=== PATIENT | female | born 1950 | race Caucasian/White ===

== ENCOUNTER 2023-03-10 10:46 | Inpatient (IN) | payer MEDICARE, OTHER ==
[~2023-03-10] VITALS: Ht 162.6 cm; Wt 88.5 kg
--- NOTE | 2023-03-10 10:50 | NUR ---
RECEIVED PT 72 YRS FEMALE FROM HOME BY NONA C/O DIZZNESS AND WEEKNESS WAS ON FLOOR UNTILL THIS MORNING
--- NOTE | 2023-03-10 11:15 | NUR ---
NOSOB OR DISCOFORT
[2023-03-10] MEDS ORDERED: IV NS 0.9% 1,000 ML BAG IV ONE (11:30)
--- NOTE | 2023-03-10 12:03 | NUR ---
INSTREDED TOMÁS Mata 20 ONLT WRIST BLOOD DROA AND SENT TO LAB BLOOD DR
[2023-03-10 12:12] LABS: BASOPHILS % (AUTO) 0.2 % (0.0-2.0); EOSINOPHILS % (AUTO) 0.2 % (0.0-6.0); HEMATOCRIT 36 % (33-45); LYMPHOCYTES # (AUTO) 0.9 K/uL (0.8-4.8); LYMPHOCYTES % (AUTO) 9.7 % (20.0-44.0); MEAN CORPUSCULAR HGB CONC 33 g/dl (31.0-36.0); MEAN CORPUSCULAR VOLUME 93 fL (82-100); MONOCYTES # (AUTO) 0.4 K/uL (0.1-1.30); MONOCYTES % (AUTO) 4.8 % (2.0-12.0); NEUTROPHILS # (AUTO) 7.9 K/uL (1.8-8.9); NEUTROPHILS % (AUTO) 85.1 % (43.0-81.0); PLATELET COUNT (AUTO) 220 K/uL (150-450); RED BLOOD CELL COUNT(AUTO) 3.91 MIL/uL (4.0-5.2); WHITE BLOOD COUNT (AUTO) 9.3 K/uL (4.3-11.0)
[2023-03-10 12:23] LABS: CALCIUM, SERUM 9.8 mg/dL (8.5-10.1); CARBON DIOXIDE 24 mmol/L (21-32); CHLORIDE 103 mmol/L (98-107); CREATININE 1.9 mg/dL (0.6-1.3); GLUCOSE 301 mg/dL (74-106); POTASSIUM 3.9 mmol/L (3.5-5.1); SODIUM SERUM 139 mmol/L (136-145); UREA NITROGEN, BLOOD 29 mg/dL (7-18)
[2023-03-10 12:27] LABS: CREATINE KINASE, TOTAL 365 U/L (26-192)
[2023-03-10 12:30] LABS: ALANINE AMINOTRANSFERASE 26 U/L (12-78); ALBUMIN 3.6 g/dL (3.4-5.0); ALKALINE PHOSPHATASE 85 U/L (46-116); ASPARTATE AMINOTRANSFERASE 20 U/L (15-37); BILIRUBIN,DIRECT 0.2 mg/dL (0.0-0.2); BILIRUBIN,TOTAL 0.6 mg/dL (0.2-1.0); TOTAL PROTEIN, SERUM 8.1 g/dL (6.4-8.2)
--- NOTE | 2023-03-10 13:17 | NUR ---
ua sent to lab
[2023-03-10 13:36] LABS: BILIRUBIN,URINE NEGATIVE (NEGATIVE); COLOR,URINE YELLOW (YELLOW); LEUKOCYTE ESTERASE ,URINE NEGATIVE (NEGATIVE); NITRITE, URINE NEGATIVE (NEGATIVE); PROTEIN,URINE 2+ mg/dl (NEGATIVE); UGLUCOSE 3+ mg/dL (NEGATIVE); UROBILINOGEN,URINE 0.2 EU/dL (0.2)
[2023-03-10 13:50] LABS: BACTERIA,URINE Rare /HPF (None Seen); SQUAMOUS EPITHELIAL CELL,UR Few /HPF (None Seen)
[2023-03-10] MEDS ORDERED: FURO-145 PO (14:14)
[2023-03-10] MEDS ORDERED: ATOR80TA PO (14:14)
[2023-03-10] MEDS ORDERED: METO25TA4 PO (14:14)
[2023-03-10] MEDS ORDERED: FAMO20TA8 PO (14:14)
[2023-03-10] MEDS ORDERED: GABA300C PO (14:14)
[2023-03-10] MEDS ORDERED: AMLO10TA4 PO (14:14)
[2023-03-10] MEDS ORDERED: BLOO-1280 IN (14:14)
[2023-03-10] MEDS ORDERED: OMEG1CAP PO (14:14)
[2023-03-10] MEDS ORDERED: INSU100I26 SQ (14:14)
[2023-03-10] MEDS ORDERED: BIOT10004 PO (14:14)
[2023-03-10] MEDS ORDERED: METHYL SALICYLATE TP (14:14)
[2023-03-10] MEDS ORDERED: BENA20TA9 PO (14:14)
[2023-03-10] MEDS ORDERED: ASPI-1169 PO (14:14)
[2023-03-10] MEDS ORDERED: Voltaren Gel TP (14:14)
[2023-03-10] MEDS ORDERED: CALC-864 PO (14:14)
[2023-03-10] MEDS ORDERED: INSU100V SQ (14:14)
--- NOTE | 2023-03-10 14:20 | NUR ---
[facility] CALLED DIRECTOR OF CARDIOPULMONARY SERVICES PAGED.
--- NOTE | 2023-03-10 14:59 | NUR ---
HAND OFF RED [place] TO ROOM 313-1
--- NOTE | 2023-03-10 15:00 | NUR ---
STABLE VS CLEAN PT DONDE KEEP COMFORTABLE
[2023-03-10 16:00] VITALS: BP 141/49; TEMP 98; O2SAT 95
--- NOTE | 2023-03-10 16:28 | NUR ---
FIXTURE BUILDER NOTE RECEIVED PT FROM ER VIA ALLEN. PATIENT A/O X4, ABLE TO MAKE NEEDS KNOWN. PT ORIENTED TO ROOM AND HOW TO USE THE CALL LIGHT. ON ROOM AIR, BREATHING EVENLY AND UNLABORED. NO SOB OR S/S OF DISTRESS NOTED. ALL BELONGINGS ACCOUNTED FOR, BELONGING SHEET SIGNED. WITH IV ACCESS LEFT WRIST #20G SL, PATENT AND INTACT, FLUSHES WELL. VS TAKEN FOLLOWS: BP 141/49, HR 67, RR 20, SPO2 95%, TEMP 98.0. SKIN ASSESSMENT DONE, PHOTOS TAKEN AND PUT IN THE CHART. LUNGS CLEAR BILATERALLY UPON AUSCULTATION. BOWEL SOUNDS PRESENT. SAFETY PRECAUTION IN PLACE: BED IN LOWEST LOCKED POSITION, SIDE RAILS UP X2, CALL LIGHT LIGHT WITHIN REACH. WILL CONTINUE TO MONITOR.
[2023-03-10] MEDS ORDERED: DEXTROSE 50%-WATER 50 ML DISP.SYRIN IV PRN (17:30)
[2023-03-10] MEDS ORDERED: INSULIN REGULAR, HUMAN 100 UNIT/ML 3 ML VIAL SQ PRN (17:30)
[2023-03-10] MEDS ORDERED: MECLIZINE HCL 25 MG TABLET PO ONE (17:30)
[2023-03-10] MEDS ORDERED: ONDANSETRON HCL/PF 4 MG/2 ML VIAL IVP PRN (18:00)
[2023-03-10] MEDS ORDERED: MAGNESIUM HYDROXIDE 30 ML UDC PO PRN (18:00)
[2023-03-10] MEDS ORDERED: Z GUARD REMEDY 4 OZ OINT TP PRN (18:00)
[2023-03-10] MEDS: BLOOD SUGAR DIAGNOSTIC 1 EACH STRIP IN SCH ×2 (18:08→22:43)
[2023-03-10] MEDS: INSULIN REGULAR, HUMAN 100 UNIT/ML 3 ML VIAL SQ PRN (18:21)
[2023-03-10] MEDS: IV LR 1000 ML 1,000 ML IV PRN (19:28)
--- NOTE | 2023-03-10 19:45 | NUR ---
RN CLOSING NOTE PATIENT AWAKE IN BED. PATIENT A/O X4, ABLE TO MAKE NEEDS KNOWN. PT ORIENTED TO ROOM AND HOW TO USE THE CALL LIGHT. ON ROOM AIR, BREATHING EVENLY AND UNLABORED. NO SOB OR S/S OF DISTRESS NOTED. ALL BELONGINGS ACCOUNTED FOR, BELONGING SHEET SIGNED. WITH IV ACCESS LEFT WRIST #20G SL, PATENT AND INTACT, FLUSHES WELL. ALL NEEDS ATTENDED. DUE MEDS GIVEN, KEPT PT COMFORTABLE IN BED. SAFETY PRECAUTION IN PLACE: BED IN LOWEST LOCKED POSITION, SIDE RAILS UP X2, CALL LIGHT LIGHT WITHIN REACH. WILL ENDORSE TO SALES ASSOCIATE.
--- NOTE | 2023-03-10 19:50 | NUR ---
INSTRUCTIONAL INTERVENTIONIST OPENING NOTE RECEIVED PATIENT AWAKE IN BED, A/O X4, ABLE TO MAKE NEEDS KNOWN. ON ROOM AIR, BREATHING EVENLY AND NONLABORED. ON EIGHT SECTION BLOWER WITH CURRENT READING SR 83 BPM. NO SOB OR S/S OF DISTRESS NOTED. WITH IV ACCESS LEFT WRIST #20G SL, PATENT AND INTACT, FLUSHES WELL. KEPT PT COMFORTABLE IN BED. SAFETY PRECAUTION IN PLACE: BED IN LOWEST LOCKED POSITION, SIDE RAILS UP X2, CALL LIGHT LIGHT WITHIN REACH. WILL CONTINUE TO MONITOR AND ASSIST.
[2023-03-10 20:00] VITALS: BP 143/69; TEMP 98.9; O2SAT 96
[2023-03-10] MEDS: GABAPENTIN 300 MG CAPSULE PO SCH (20:49)
[2023-03-10] MEDS: HEPARIN SODIUM, PORCINE 5000 UNITS/1 ML VIAL SQ SCH (20:50)
[2023-03-10] MEDS: *INSULIN REGULAR(HUMULIN R)HUM 100 UNIT/ML VIAL SQ PRN (22:36)
[2023-03-10] MEDS: INSULIN GLARGINE, 100 UNIT/ML CARTRIDGE SQ SCH (22:42)
[2023-03-10] MEDS: ACETAMINOPHEN 325 MG TABLET PO PRN (22:52)
[2023-03-11] VITALS (9 sets, daily range): BP systolic 108–134; BP diastolic 56–70; TEMP 97.5–99; O2SAT 94–97
[2023-03-11] MEDS ORDERED: MECLIZINE HCL 12.5 MG TABLET PO PRN
[2023-03-11] MEDS: GABAPENTIN 300 MG CAPSULE PO SCH ×3 (05:41→22:05)
--- NOTE | 2023-03-11 07:03 | NUR ---
SALES FACILITATOR CLOSING NOTES PATIENT AWAKE IN BED, A/O X4, ABLE TO MAKE NEEDS KNOWN. ON ROOM AIR, BREATHING EVENLY AND NONLABORED. ON SOLICITING FREIGHT AGENT WITH CURRENT READING SR 85 BPM. NO SOB OR S/S OF DISTRESS NOTED. WITH IV ACCESS LEFT WRIST #20G SL, PATENT AND INTACT, FLUSHES WELL. RUNNING D5LR @75CC/HR. KEPT PT COMFORTABLE IN BED. SAFETY PRECAUTION IN PLACE: BED IN LOWEST LOCKED POSITION, SIDE RAILS UP X2, CALL LIGHT LIGHT WITHIN REACH. WILL ENDORSE TO AM NURSE FOR SOLEDAD.
[2023-03-11 07:23] LABS: BASOPHILS % (AUTO) 0.4 % (0.0-2.0); HEMATOCRIT 33 % (33-45); HEMOGLOBIN 10.9 g/dL (11.5-14.8); LYMPHOCYTES % (AUTO) 40.5 % (20.0-44.0); MEAN CORPUSCULAR HGB CONC 34 g/dl (31.0-36.0); MEAN CORPUSCULAR VOLUME 93 fL (82-100); MONOCYTES # (AUTO) 0.4 K/uL (0.1-1.30); MONOCYTES % (AUTO) 5.5 % (2.0-12.0); NEUTROPHILS # (AUTO) 3.8 K/uL (1.8-8.9); NEUTROPHILS % (AUTO) 50.6 % (43.0-81.0); PLATELET COUNT (AUTO) 221 K/uL (150-450); RED BLOOD CELL COUNT(AUTO) 3.51 MIL/uL (4.0-5.2); WHITE BLOOD COUNT (AUTO) 7.5 K/uL (4.3-11.0)
[2023-03-11] MEDS: BLOOD SUGAR DIAGNOSTIC 1 EACH STRIP IN SCH ×4 (07:45→22:05)
[2023-03-11 07:46] LABS: CALCIUM, SERUM 9.1 mg/dL (8.5-10.1); CARBON DIOXIDE 24 mmol/L (21-32); CHLORIDE 105 mmol/L (98-107); CREATININE 1.5 mg/dL (0.6-1.3); GLUCOSE 150 mg/dL (74-106); MAGNESIUM 1.9 mg/dL (1.8-2.4); PHOSPHORUS 3.9 mg/dL (2.5-4.9); POTASSIUM 3.4 mmol/L (3.5-5.1); SODIUM SERUM 139 mmol/L (136-145); UREA NITROGEN, BLOOD 20 mg/dL (7-18)
[2023-03-11 08:02] LABS: CHOLESTEROL 126 mg/dL (<200); HDL CHOLESTEROL 35 mg/dL (40-60); LDL 66 mg/dL (0-99); TRIGLYCERIDES 138 mg/dL (30-150)
--- NOTE | 2023-03-11 08:02 | NUR ---
RN OPENING NOTE RECEIVED PATIENT IN BED AO x 3, ABLE TO RESPONDS ALL PHYSICAL STIMULI. RESPIRATORY EVEN AND UNLABORED IN ROOM AIR. IN NO ACUTE RESPIRATORY DISTRESS OBSERVED. SKIN IS WARM TO TOUCH, KEEP CLEAN/DRY. KEPT ELEVATED HOB FOR ASPIRATION PRECAUTION/ENSURE AIRWAY, ALSO LOWEST BED POSITIONED. BED ALARM IS ON AT ALL TIMES FOR SAFETY. CALL LIGHT WITHIN REACH, WILL CONTINUE TO MONITOR.
[2023-03-11] MEDS: METOPROLOL SUCCINATE 25 MG TAB.SR.24H PO SCH (09:00)
[2023-03-11] MEDS ORDERED: AMLODIPINE BESYLATE 10 MG TABLET PO SCH (09:00)
[2023-03-11] MEDS ORDERED: BENAZEPRIL HCL 20 MG TABLET PO SCH (09:00)
[2023-03-11] MEDS ORDERED: Medication Not On Formulary EA (Omega-3 Fatty Acids/Fish Oil (Fish Oil 1,000 Mg Capsule) PO SCH (09:00)
[2023-03-11] MEDS ORDERED: Medication Not On Formulary EA (Biotin 1,000 MCG) PO SCH (09:00)
[2023-03-11] MEDS: PANTOPRAZOLE 40 MG TABLET.DR PO SCH (09:21)
[2023-03-11] MEDS: ASPIRIN 81 MG TAB.CHEW PO SCH (09:21)
[2023-03-11] MEDS: ATORVASTATIN 40 MG TABLET PO SCH (09:21)
[2023-03-11] MEDS: HEPARIN SODIUM, PORCINE 5000 UNITS/1 ML VIAL SQ SCH ×2 (09:23→22:07)
[2023-03-11] MEDS ORDERED: POTASSIUM CHLORIDE 20 MEQ TAB.PRT.SR PO SCH (10:00)
[2023-03-11] MEDS: IV LR 1000 ML 1,000 ML IV PRN (12:13)
[2023-03-11] MEDS: *INSULIN REGULAR(HUMULIN R)HUM 100 UNIT/ML VIAL SQ PRN ×3 (12:14→22:08)
--- NOTE | 2023-03-11 18:05 | NUR ---
RN CLOSING NOTE PATIENT RESTING IN BED. IN NO ACUTE DISTRESS OBSERVED. RESPIRATORY EVEN AND UNLABORED IN ROOM AIR. THE PATIENT HAS NO FURTHER C/O N /V, BUT VERTIGO. SKIN IS WARM TO TOUCH KEEP CLEAN/DRY. KEPT ELEVATED HOB FOR ENSURE AIRWAY/ASPIRATION PRECAUTION, AND LOWEST BED POSITION. BED ALARM IS ON AT ALL THE TIME FOR SAFETY. CALL LIGHT WITHIN REACH, WILL ENDORSE MACHINE SILVER STRIPPER.
[2023-03-11] MEDS: INSULIN GLARGINE, 100 UNIT/ML CARTRIDGE SQ SCH (22:09)
--- NOTE | 2023-03-11 22:46 | NUR ---
MS/TELE/RN AT 19:30, PATIENT WAS IN BED AWAKE, ALERT, ORIENTED, APPEARED COMFORTABLE, NO SIGNS OF DISTRESS NOTED. PRESENTLY, PATIENT IS SLEEPING, NO CHANGE IN CONDITION, CALL LIGHT IN REACH, WILL CONTINUE TO MONITOR.
[2023-03-12] VITALS (7 sets, daily range): BP systolic 122–145; BP diastolic 49–86; TEMP 97.8–99.1; O2SAT 93–98
[2023-03-12] MEDS: GABAPENTIN 300 MG CAPSULE PO SCH ×3 (05:36→21:31)
--- NOTE | 2023-03-12 05:41 | NUR ---
MS/TELE/RN PATIENT IS AWAKE AT THIS TIME, NO C/O PAIN, NO SIGNS OF DISTRESS NOTED, CALL LIGHT IN REACH, ALL NEEDS ATTENDED AT THIS TIME, WILL CONTINUE TO MONITOR.
[2023-03-12] MEDS: INSULIN REGULAR, HUMAN 100 UNIT/ML 3 ML VIAL SQ PRN ×3 (06:23→17:25)
--- NOTE | 2023-03-12 07:45 | NUR ---
OPERATIONS BOARDMAN OPENING NOTE Patient in bed, awake. A/O x 4, able to make needs known. On room air, no SOB or s/s of distress noted. IV access on Left wrist #20 infusing LR at 75 ml/hr. Per patient, she still feels dizzy. On external monitoring showing SR, HR on the 70's. Safety precautions in place: bed in low, locked position; siderails up x 2; call light within reach. Will continue to monitor.
[2023-03-12] MEDS: BLOOD SUGAR DIAGNOSTIC 1 EACH STRIP IN SCH ×4 (07:54→22:19)
[2023-03-12 08:01] LABS: CALCIUM, SERUM 8.9 mg/dL (8.5-10.1); CARBON DIOXIDE 23 mmol/L (21-32); CHLORIDE 105 mmol/L (98-107); CREATININE 1.6 mg/dL (0.6-1.3); GLUCOSE 206 mg/dL (74-106); POTASSIUM 3.7 mmol/L (3.5-5.1); SODIUM SERUM 138 mmol/L (136-145); UREA NITROGEN, BLOOD 22 mg/dL (7-18)
--- NOTE | 2023-03-12 09:00 | NUR ---
RN NOTE Orthostatics done as follows: Supine- 145/72, HR 67 Sitting- 122/63, HR 69 Standing- 136/86, Hr 79
[2023-03-12] MEDS: ATORVASTATIN 40 MG TABLET PO SCH (09:24)
[2023-03-12] MEDS: ASPIRIN 81 MG TAB.CHEW PO SCH (09:24)
[2023-03-12] MEDS: PANTOPRAZOLE 40 MG TABLET.DR PO SCH (09:24)
[2023-03-12] MEDS: ACETAMINOPHEN 325 MG TABLET PO PRN ×2 (09:25→22:53)
[2023-03-12] MEDS: HEPARIN SODIUM, PORCINE 5000 UNITS/1 ML VIAL SQ SCH ×2 (09:27→21:34)
[2023-03-12] MEDS: METOPROLOL SUCCINATE 25 MG TAB.SR.24H PO SCH (09:33)
[2023-03-12] MEDS ORDERED: IV NS 0.9% 1,000 ML IV ONE (11:30)
[2023-03-12] MEDS: IV LR 1000 ML 1,000 ML IV PRN (14:35)
--- NOTE | 2023-03-12 18:45 | NUR ---
CONCRETE WALL GRINDER OPERATOR CLOSING NOTE Patient in bed, resting. A/O x 4, able to make needs known. Stable on room air, no SOB or s/s of distress noted. IV access on Right hand #20 infusing LR at 75 ml/hr. On external monitoring showing SR, HR on the 70's. Purewick placed, output of clear yellow urine 850 cc. All needs attended to. Due meds given. Safety precautions in place: bed in low, locked position; siderails up x 2; call light within reach. Will endorse to shift boss nurse for SOLEDAD.
--- NOTE | 2023-03-12 19:40 | NUR ---
silk screen cutter Opening Note Received patient in bed; awake, alert and oriented x 4. On room air; tolerating well. Breathing even and nonlabored. Not in any form of respiratory or cardiac distress. Denies any pain or discomfort. On telemetry monitoring with reading of sinus rhythm hr-71 bpm. With IV access on right hand 20g; patent and intact infusing with LR 1L running @ 75 ml/hr; flushes well. Able to make needs known. Safety precautions implemented: head of bed elevated, call light and table within reach, side rails up x 2, bed in lowest locked position. Will continue to monitor.
[2023-03-12] MEDS: INSULIN GLARGINE, 100 UNIT/ML CARTRIDGE SQ SCH (22:40)
[2023-03-12] MEDS: *INSULIN REGULAR(HUMULIN R)HUM 100 UNIT/ML VIAL SQ PRN (22:44)
[2023-03-13] VITALS: BP 151/78; TEMP 98.5; O2SAT 96
[2023-03-13] MEDS: IV LR 1000 ML 1,000 ML IV PRN (03:57)
--- NOTE | 2023-03-13 04:00 | NUR ---
RN Note Patient refused to have orthostatic vs taken. 0400 am bp supine position: bp 134/75 mm Hg, hr-60.
[2023-03-13 05:00] VITALS: BP 134/75; TEMP 98.4; O2SAT 98
[2023-03-13] MEDS: GABAPENTIN 300 MG CAPSULE PO SCH ×2 (06:21→12:46)
[2023-03-13] MEDS: BLOOD SUGAR DIAGNOSTIC 1 EACH STRIP IN SCH ×3 (06:21→17:07)
[2023-03-13] MEDS: INSULIN REGULAR, HUMAN 100 UNIT/ML 3 ML VIAL SQ PRN ×3 (06:48→17:12)
--- NOTE | 2023-03-13 07:10 | NUR ---
prison officer Closing Note Patient in bed; awake, a/o x 4. Stable on room air. In no acute distress. Denies any pain or discomfort. On telemetry monitoring with reading of sinus rhythm hr-61 bpm. With IV access on right hand 20g; patent and intact infusing with LR 1L running @ 75 ml/hr; flushes well. All needs met. All due meds given as ordered. Safety precautions maintained. Endorsed to MANUEL Lomas and MANUEL Abraham for continuity of care.
[2023-03-13 07:23] LABS: BASOPHILS % (AUTO) 0.6 % (0.0-2.0); EOSINOPHILS % (AUTO) 5.5 % (0.0-6.0); HEMATOCRIT 34 % (33-45); HEMOGLOBIN 11.7 g/dL (11.5-14.8); LYMPHOCYTES # (AUTO) 2.5 K/uL (0.8-4.8); LYMPHOCYTES % (AUTO) 39.7 % (20.0-44.0); MEAN CORPUSCULAR HGB CONC 34 g/dl (31.0-36.0); MEAN CORPUSCULAR VOLUME 92 fL (82-100); MONOCYTES # (AUTO) 0.5 K/uL (0.1-1.30); MONOCYTES % (AUTO) 7.9 % (2.0-12.0); NEUTROPHILS # (AUTO) 2.9 K/uL (1.8-8.9); NEUTROPHILS % (AUTO) 46.3 % (43.0-81.0); PLATELET COUNT (AUTO) 213 K/uL (150-450); RED BLOOD CELL COUNT(AUTO) 3.74 MIL/uL (4.0-5.2); WHITE BLOOD COUNT (AUTO) 6.4 K/uL (4.3-11.0)
[2023-03-13 07:30] VITALS: BP 139/58; TEMP 97.9; O2SAT 95
--- NOTE | 2023-03-13 07:30 | NUR ---
DICE TABLE PERSON OPENING NOTE Received patient awake in bed, A/O x 4, able to make needs known. On room air, no SOB or s/s of distress noted. IV access on Left hand G#20 infusing LR at 75 ml/hr. Patient denies dizziness at this time. On external monitoring showing Sinus bradycardia, HR 58 bpm. Safety precautions in place: bed in low, locked position; siderails up x 2; call light within reach. Will continue to monitor.
[2023-03-13 07:46] LABS: CALCIUM, SERUM 8.8 mg/dL (8.5-10.1); CARBON DIOXIDE 24 mmol/L (21-32); CHLORIDE 105 mmol/L (98-107); CREATININE 1.5 mg/dL (0.6-1.3); GLUCOSE 196 mg/dL (74-106); MAGNESIUM 1.8 mg/dL (1.8-2.4); PHOSPHORUS 3.7 mg/dL (2.5-4.9); POTASSIUM 3.7 mmol/L (3.5-5.1); SODIUM SERUM 139 mmol/L (136-145); UREA NITROGEN, BLOOD 19 mg/dL (7-18)
[2023-03-13] MEDS: PANTOPRAZOLE 40 MG TABLET.DR PO SCH (08:22)
[2023-03-13] MEDS: ATORVASTATIN 40 MG TABLET PO SCH (08:22)
[2023-03-13] MEDS: ASPIRIN 81 MG TAB.CHEW PO SCH (08:22)
[2023-03-13] MEDS: HEPARIN SODIUM, PORCINE 5000 UNITS/1 ML VIAL SQ SCH (08:23)
[2023-03-13] MEDS: METOPROLOL SUCCINATE 25 MG TAB.SR.24H PO SCH (08:25)
--- NOTE | 2023-03-13 15:09 | NUR ---
SW Consult. Pt resides alone at [address] [place] [address]. [address] [place], [place] [id number] . Pt. is alert and oriented X4 but requires assistance when she returns home. requested a [employer] referral. DC Plan : Pt will discharge home to [address] [place] [address]. [address] [place] [address] . Her sister will move in with her to provide assistance. Resources: [employer]
[2023-03-13 16:00] VITALS: BP 140/63; TEMP 97.8; O2SAT 95
--- NOTE | 2023-03-13 16:06 | NUR ---
RN NOTES PATIENT SEEN BY DESKTOP SUPPORT ENGINEER. [facility] [employer] ALERT GIVEN BY DEB.
[2023-03-13] MEDS: ACETAMINOPHEN 325 MG TABLET PO PRN (17:39)
--- NOTE | 2023-03-13 17:40 | NUR ---
RN NOTES PT C/O MILD HEADACHE AND REQUESTED FOR TYLENOL. PRN TYLENOL 650MG PO GIVEN AT 1737.
--- NOTE | 2023-03-13 19:10 | NUR ---
RN DISCHARGED NOTES PATIENT DISCHARGED HOME IN STABLE CONDITION. A/O X4. ABLE TO MAKE NEEDS KNOWN. PATIENT IS BREATHING EVENLY AND UNLABORED ON ROOM AIR, NO SIGNS OF DISTRESS NOTED. PATIENT BELONGINGS ACCOUNTED FOR, BELONGING SHEET SIGNED BY PATIENT. PHOTOS OF SKIN ISSUES TAKEN AND FILED ON HER CHART. PATIENT WERE GIVEN DISCHARGE INSTRUCTIONS VERBALLY AND IN WRITTEN FORM, VERBALIZED UNDERSTANDING. IV ACCESS ON RIGHT HAND G#20 REMOVED, DRY DRESSING APPLIED AT SITE, NO SIGNS OF BLEEDING NOTED. NAME ARM BAND REMOVED. PATIENT LEFT UNIT VIA WHEELCHAIR AT 1900 ACCOMPANIED BY PAT KOHLER. CALLED TAXI AND GAVE TAXI VOUCHER. PT VERBALIZED THAT HER SISTER NAMED JANUARY WILL BE WAITING FOR HER WHEN SHE ARRIVED AT HER APARTMENT. CHARGE NURSE AWARE OF D/C.
== END 2023-03-13 19:10 | disposition home health service (06) | DRG 683 ==
LOC: ER 10:48 → TELE 14:51
PROVIDERS: ADMIT Nurse Practitioner Family; ATTEND Nurse Practitioner Family
DX: N17.0 Acute kidney failure with tubular necrosis (principal); M62.82 Rhabdomyolysis; I10 Essential (primary) hypertension; H81.10 Benign paroxysmal vertigo, unspecified ear; E87.6 Hypokalemia; Z79.4 Long term (current) use of insulin; E11.9 Type 2 diabetes mellitus without complications; E78.5 Hyperlipidemia, unspecified; W19.XXXA Unspecified fall, initial encounter; Y93.9 Activity, unspecified; Y92.009 Unspecified place in unspecified non-institutional (private) residence as the place of occurrence of the external cause; Z87.891 Personal history of nicotine dependence; Z95.5 Presence of coronary angioplasty implant and graft
CPT/HCPCS: 36415; 70450-TC; 71045-TC; 76770-TC; 80048-TC; 80061-TC; 80076-TC; 81001; 82550-TC; 82553; 82962-TC; 83735-TC; 83880; 84100-TC; 84484-TC; 85025-TC; 93880-TC; 97112-TC; 97116-TC; 97530-TC; A4223; G0378; J1644; J1815; J3490; J7120; J8597

== ENCOUNTER 2024-02-25 18:20 | Inpatient (IN) | payer MEDICARE, OTHER ==
[~2024-02-25] VITALS: Ht 162.6 cm; Wt 72.6 kg
[2024-02-25 10:30] VITALS: BP 153/63; TEMP 99.3; O2SAT 94
[~2024-02-25 18:20] MED LIST: AMLO10TA4 PO; ASPI-1169 PO; ATOR80TA PO; BENA20TA9 PO; BIOT10004 PO; BLOO-1280 IN; CALC-864 PO; FAMO20TA8 PO; FURO-145 PO; GABA300C PO; INSU100I26 SQ; INSU100V SQ; METHYL SALICYLATE TP; METO25TA4 PO; OMEG1CAP PO; Voltaren Gel TP
[2024-02-25] MEDS: IV NS 0.9% 1,000 ML BAG IV ONE (18:45)
[2024-02-25 19:11] LABS: BASOPHILS % (AUTO) 0.3 % (0.0-2.0); EOSINOPHILS # (AUTO) 0.3 K/uL (0.0-0.7); EOSINOPHILS % (AUTO) 2.9 % (0.0-6.0); HEMATOCRIT 37 % (33-45); HEMOGLOBIN 12.6 g/dL (11.5-14.8); LYMPHOCYTES # (AUTO) 1.2 K/uL (0.8-4.8); LYMPHOCYTES % (AUTO) 13.1 % (20.0-44.0); MEAN CORPUSCULAR HEMOGLOBIN 32 PG (26.0-33.0); MEAN CORPUSCULAR HGB CONC 34 g/dl (31.0-36.0); MEAN CORPUSCULAR VOLUME 93 fL (82-100); MONOCYTES # (AUTO) 0.5 K/uL (0.1-1.30); NEUTROPHILS # (AUTO) 7.2 K/uL (1.8-8.9); NEUTROPHILS % (AUTO) 78.7 % (43.0-81.0); PLATELET COUNT (AUTO) 176 K/uL (150-450); RED BLOOD CELL COUNT(AUTO) 3.96 MIL/uL (4.0-5.2); RED CELL DISTRIBUTION WIDTH 12.9 % (11.5-15.0); WHITE BLOOD COUNT (AUTO) 9.2 K/uL (4.3-11.0)
[2024-02-25 19:18] LABS: SERUM AMMONIA 1 umol/L (11-32)
[2024-02-25 19:20] LABS: CALCIUM, SERUM 8.5 mg/dL (8.5-10.1); CARBON DIOXIDE 25 mmol/L (21-32); CHLORIDE 101 mmol/L (98-107); CREATININE 1.9 mg/dL (0.6-1.3); GLUCOSE 151 mg/dL (74-106); POTASSIUM 3.5 mmol/L (3.5-5.1); SODIUM SERUM 138 mmol/L (136-145); UREA NITROGEN, BLOOD 31 mg/dL (7-18)
[2024-02-25] MEDS ORDERED: CARV3.122 PO (19:24)
[2024-02-25] MEDS ORDERED: BENA40TA8 PO (19:24)
[2024-02-25] MEDS ORDERED: ACET-2030 PO (19:24)
[2024-02-25] MEDS ORDERED: MECL-167 PO (19:24)
[2024-02-25 19:27] LABS: ALANINE AMINOTRANSFERASE 25 U/L (12-78); ALBUMIN 2.8 g/dL (3.4-5.0); ALCOHOL, BLOOD < 3 mg/dL (0-10); ALKALINE PHOSPHATASE 96 U/L (46-116); ASPARTATE AMINOTRANSFERASE 54 U/L (15-37); BILIRUBIN,DIRECT 0.5 mg/dL (0.0-0.2); BILIRUBIN,TOTAL 1.5 mg/dL (0.2-1.0); TOTAL PROTEIN, SERUM 7.6 g/dL (6.4-8.2)
[2024-02-25 19:29] LABS: ACETAMINOPHEN 0 ug/ml (10-30); SALICYLATE < 0.2 mg/dL (2.8-20.0)
[2024-02-25 19:33] LABS: LACTIC ACID 2.6 mmol/L (0.4-2.0)
[2024-02-25 19:49] LABS: INR 1.05 (0.91-1.10); PARTIAL THROMBOPLASTIN TIME 30.2 SEC (24.3-34.3); PROTHROMBIN TIME 11.1 SECS (9.2-11.1)
[2024-02-25 19:56] LABS: APPEARANCE,URINE SLIGHTLY CLOUDY (CLEAR); BILIRUBIN,URINE 1+ (NEGATIVE); BLOOD, URINE 3+ Ery/uL (NEGATIVE); COLOR,URINE YELLOW (YELLOW); KETONES,URINE TRACE mg/dL (NEGATIVE); LEUKOCYTE ESTERASE ,URINE NEGATIVE (NEGATIVE); NITRITE, URINE NEGATIVE (NEGATIVE); PROTEIN,URINE 3+ mg/dl (NEGATIVE); UGLUCOSE NEGATIVE (NEGATIVE)
[2024-02-25 20:01] LABS: RBC,URINE 51-80 /HPF (0-2)
[2024-02-25 20:02] LABS: ADD URINE CULTURE YES; BACTERIA,URINE 4+ /HPF (None Seen); SQUAMOUS EPITHELIAL CELL,UR 0-2 /HPF (None Seen)
[2024-02-25 20:39] LABS: AMPHETAMINE, URINE NEGATIVE (NEGATIVE); BARBITURATE, URINE NEGATIVE (NEGATIVE); BENZODIAZEPINE, URINE NEGATIVE (NEGATIVE); CANNABINOID, URINE NEGATIVE (NEGATIVE); COCCAINE, URINE NEGATIVE (NEGATIVE); OPIATE, URINE NEGATIVE (NEGATIVE); PHENCYCLIDINE SCREEN,URINE NEGATIVE (NEGATIVE)
[2024-02-25] MEDS ORDERED: CEFTRIAXONE 1GM BAG (ER ONLY) 50 ML IV ONE (21:40)
[2024-02-25] MEDS: CEFTRIAXONE 1GM BAG (ER ONLY) 1 GM/50 ML PIGGYBACK IV ONE (21:42)
[2024-02-25] MEDS ORDERED: MAG HYDROX/AL HYDROX/SIMETH 30 ML UDC PO PRN (22:00)
[2024-02-25] MEDS ORDERED: ZOLPIDEM TARTRATE 5 MG TABLET PO PRN (22:00)
[2024-02-25] MEDS ORDERED: MECLIZINE HCL 25 MG TABLET PO PRN (22:00)
[2024-02-25] MEDS ORDERED: ONDANSETRON HCL/PF 4 MG/2 ML VIAL IVP PRN (22:00)
[2024-02-25] MEDS ORDERED: MAGNESIUM HYDROXIDE 30 ML UDC PO PRN (22:00)
[2024-02-25] MEDS ORDERED: Z GUARD REMEDY 4 OZ OINT TP PRN (22:00)
[2024-02-25] MEDS: ENOXAPARIN SODIUM 30 MG/0.3 ML DISP.SYRIN SQ SCH (23:24)
[2024-02-25] MEDS: BLOOD SUGAR DIAGNOSTIC 1 EACH STRIP IN ONE (23:25)
[2024-02-26] MEDS: IV NS 0.9% 1,000 ML IV PRN (00:15)
[2024-02-26 06:13] LABS: BASOPHILS % (AUTO) 0.5 % (0.0-2.0); EOSINOPHILS # (AUTO) 0.4 K/uL (0.0-0.7); EOSINOPHILS % (AUTO) 5.5 % (0.0-6.0); HEMATOCRIT 30 % (33-45); HEMOGLOBIN 10.7 g/dL (11.5-14.8); LYMPHOCYTES # (AUTO) 1.4 K/uL (0.8-4.8); LYMPHOCYTES % (AUTO) 18.4 % (20.0-44.0); MEAN CORPUSCULAR HEMOGLOBIN 33 PG (26.0-33.0); MEAN CORPUSCULAR HGB CONC 35 g/dl (31.0-36.0); MEAN CORPUSCULAR VOLUME 93 fL (82-100); MONOCYTES # (AUTO) 0.5 K/uL (0.1-1.30); MONOCYTES % (AUTO) 6.8 % (2.0-12.0); NEUTROPHILS # (AUTO) 5.3 K/uL (1.8-8.9); NEUTROPHILS % (AUTO) 68.8 % (43.0-81.0); PLATELET COUNT (AUTO) 143 K/uL (150-450); RED BLOOD CELL COUNT(AUTO) 3.27 MIL/uL (4.0-5.2); RED CELL DISTRIBUTION WIDTH 12.7 % (11.5-15.0); WHITE BLOOD COUNT (AUTO) 7.8 K/uL (4.3-11.0)
[2024-02-26 06:34] LABS: ALANINE AMINOTRANSFERASE 15 U/L (12-78); ALBUMIN 2.3 g/dL (3.4-5.0); ALKALINE PHOSPHATASE 81 U/L (46-116); ASPARTATE AMINOTRANSFERASE 32 U/L (15-37); BILIRUBIN,DIRECT 0.4 mg/dL (0.0-0.2); BILIRUBIN,TOTAL 1.2 mg/dL (0.2-1.0); CALCIUM, SERUM 7.9 mg/dL (8.5-10.1); CARBON DIOXIDE 24 mmol/L (21-32); CHLORIDE 105 mmol/L (98-107); CREATININE 1.8 mg/dL (0.6-1.3); GLUCOSE 137 mg/dL (74-106); PHOSPHORUS 3.6 mg/dL (2.5-4.9); POTASSIUM 3.4 mmol/L (3.5-5.1); SODIUM SERUM 140 mmol/L (136-145); TOTAL PROTEIN, SERUM 6.5 g/dL (6.4-8.2); UREA NITROGEN, BLOOD 33 mg/dL (7-18)
[2024-02-26 06:39] LABS: LACTIC ACID 1.1 mmol/L (0.4-2.0)
[2024-02-26 08:00] VITALS: BP 145/63; TEMP 98.6; O2SAT 95
[2024-02-26] MEDS: INSULIN GLARGINE, 100 UNIT/ML CARTRIDGE SQ SCH ×2 (09:00→21:59)
[2024-02-26] MEDS ORDERED: Medication Not On Formulary EA (Omega-3 Fatty Acids/Fish Oil (Fish Oil 1,000 Mg Capsule) PO SCH (09:00)
[2024-02-26] MEDS: PANTOPRAZOLE 40 MG TABLET.DR PO SCH (09:16)
[2024-02-26] MEDS: INSULIN ASPART/LISPRO 100 UNIT/ML CARTRIDGE SQ SCH (09:26)
[2024-02-26] MEDS: ATORVASTATIN 40 MG TABLET PO SCH (09:39)
[2024-02-26] MEDS: BENAZEPRIL HCL 20 MG TABLET PO SCH (09:39)
[2024-02-26] MEDS: CALCIUM CARB 600MG /VIT D 1 EACH TABLET PO SCH (09:39)
[2024-02-26] MEDS: ASPIRIN 81 MG TAB.CHEW PO SCH (09:40)
[2024-02-26] MEDS: CARVEDILOL 3.125 MG TABLET PO SCH (09:40)
[2024-02-26] MEDS: POTASSIUM CHLORIDE 10 MEQ TABLET.SA PO ONE (09:43)
[2024-02-26] MEDS: CEFTRIAXONE 1 G in IV D5W 50 ML IV SCH (09:43)
[2024-02-26] MEDS: ACETAMINOPHEN 325 MG TABLET PO PRN (15:14)
[2024-02-26] MEDS: IV NS 0.9% 1,000 ML BAG IV PRN (15:23)
[2024-02-26 16:22] VITALS: BP 113/48; TEMP 97.9; O2SAT 96
[2024-02-26 20:00] VITALS: BP_SYST 119; BP_SYST 126; BP_DIAS 50; BP_DIAS 93; TEMP 97.9; TEMP 98.1; O2SAT 96; O2SAT 97
[2024-02-27 00:02] VITALS: BP 135/55; TEMP 98.1; O2SAT 96
[2024-02-27 07:19] LABS: BASOPHILS % (AUTO) 0.6 % (0.0-2.0); EOSINOPHILS # (AUTO) 0.5 K/uL (0.0-0.7); EOSINOPHILS % (AUTO) 6.3 % (0.0-6.0); HEMATOCRIT 29 % (33-45); LYMPHOCYTES # (AUTO) 1.4 K/uL (0.8-4.8); LYMPHOCYTES % (AUTO) 20.1 % (20.0-44.0); MEAN CORPUSCULAR HEMOGLOBIN 32 PG (26.0-33.0); MEAN CORPUSCULAR HGB CONC 34 g/dl (31.0-36.0); MEAN CORPUSCULAR VOLUME 93 fL (82-100); MONOCYTES # (AUTO) 0.8 K/uL (0.1-1.30); MONOCYTES % (AUTO) 10.8 % (2.0-12.0); NEUTROPHILS # (AUTO) 4.4 K/uL (1.8-8.9); NEUTROPHILS % (AUTO) 62.2 % (43.0-81.0); PLATELET COUNT (AUTO) 143 K/uL (150-450); RED BLOOD CELL COUNT(AUTO) 3.16 MIL/uL (4.0-5.2); RED CELL DISTRIBUTION WIDTH 12.9 % (11.5-15.0); WHITE BLOOD COUNT (AUTO) 7.1 K/uL (4.3-11.0)
[2024-02-27 07:55] LABS: CALCIUM, SERUM 7.3 mg/dL (8.5-10.1); CARBON DIOXIDE 20 mmol/L (21-32); CHLORIDE 108 mmol/L (98-107); CREATININE 1.9 mg/dL (0.6-1.3); GLUCOSE 175 mg/dL (74-106); POTASSIUM 3.8 mmol/L (3.5-5.1); SODIUM SERUM 142 mmol/L (136-145); UREA NITROGEN, BLOOD 33 mg/dL (7-18)
[2024-02-27 08:00] VITALS: BP 153/73; TEMP 98.2; O2SAT 97
[2024-02-27] MEDS: HYDROCODONE/APAP 5/325MG TABLET PO PRN (08:16)
[2024-02-27] MEDS ORDERED: POLYMYXIN B SULFATE 500,000 UNITS ONE (09:09)
[2024-02-27] MEDS ORDERED: ANESTHESIA TRAY IN PYXIS 1 EA TRAY MC ONE (09:09)
[2024-02-27] MEDS ORDERED: BUPIVACAINE 0.5 % PF 150 MG/30 ML VIAL ONE (09:09)
[2024-02-27 09:12] LABS: IRON, SERUM 46 ug/dl (50-175); TOTAL IRON BINDING CAPACITY 167 ug/dl (250-450)
[2024-02-27 09:26] LABS: FERRITIN 403 ng/mL (8-388)
[2024-02-27] MEDS ORDERED: FENTANYL PF 250MCG/5ML AMPUL ONE (11:29)
[2024-02-27] MEDS ORDERED: ROCURONIUM BROMIDE 50 MG/5 ML ONE (11:29)
[2024-02-27] MEDS ORDERED: TRANEXAMIC ACID 1,000 MG/10 ML VIAL ONE (12:04)
[2024-02-27] MEDS ORDERED: LABETALOL 20 MG/4 ML VIAL ONE (12:05)
[2024-02-27 14:44] LABS: HEMOGLOBIN 10.3 g/dL (11.5-14.8)
[2024-02-27 16:00] VITALS: BP 133/62; TEMP 97.9; O2SAT 96
[2024-02-27] MEDS ORDERED: DEXTROSE 50%-WATER 50 ML DISP.SYRIN IV PRN (19:00)
[2024-02-27 20:00] VITALS: BP 150/72; TEMP 98.2; O2SAT 97
[2024-02-27] MEDS: BLOOD SUGAR DIAGNOSTIC 1 EACH STRIP VI SCH (22:26)
[2024-02-27] MEDS: INSULIN GLARGINE, 100 UNIT/ML CARTRIDGE SQ SCH (22:28)
[2024-02-27] MEDS: INSULIN REGULAR, HUMAN 100 UNIT/ML 3 ML VIAL SQ PRN (22:29)
[2024-02-28 06:44] LABS: BASOPHILS % (AUTO) 0.3 % (0.0-2.0); EOSINOPHILS # (AUTO) 0.3 K/uL (0.0-0.7); EOSINOPHILS % (AUTO) 4.1 % (0.0-6.0); HEMATOCRIT 25 % (33-45); HEMOGLOBIN 8.6 g/dL (11.5-14.8); LYMPHOCYTES % (AUTO) 14.2 % (20.0-44.0); MEAN CORPUSCULAR HEMOGLOBIN 32 PG (26.0-33.0); MEAN CORPUSCULAR HGB CONC 35 g/dl (31.0-36.0); MEAN CORPUSCULAR VOLUME 93 fL (82-100); MONOCYTES # (AUTO) 0.8 K/uL (0.1-1.30); MONOCYTES % (AUTO) 11.1 % (2.0-12.0); NEUTROPHILS # (AUTO) 5.1 K/uL (1.8-8.9); NEUTROPHILS % (AUTO) 70.3 % (43.0-81.0); PLATELET COUNT (AUTO) 140 K/uL (150-450); RED BLOOD CELL COUNT(AUTO) 2.69 MIL/uL (4.0-5.2); RED CELL DISTRIBUTION WIDTH 12.6 % (11.5-15.0); WHITE BLOOD COUNT (AUTO) 7.2 K/uL (4.3-11.0)
[2024-02-28 07:00] VITALS: BP 156/66; TEMP 99; O2SAT 95
[2024-02-28 07:06] LABS: CALCIUM, SERUM 7.5 mg/dL (8.5-10.1); CARBON DIOXIDE 22 mmol/L (21-32); CHLORIDE 107 mmol/L (98-107); CREATININE 1.8 mg/dL (0.6-1.3); GLUCOSE 172 mg/dL (74-106); MAGNESIUM 1.8 mg/dL (1.8-2.4); PHOSPHORUS 3.2 mg/dL (2.5-4.9); POTASSIUM 3.8 mmol/L (3.5-5.1); SODIUM SERUM 139 mmol/L (136-145); UREA NITROGEN, BLOOD 29 mg/dL (7-18)
[2024-02-28 07:20] LABS: CREATINE KINASE, TOTAL 912 U/L (26-192)
[2024-02-28] MEDS: CEFAZOLIN 2 GM in IV D5W 100 ML IV SCH (09:58)
[2024-02-28] MEDS: MORPHINE SULFATE INJ 4 MG/ML DISP.SYRIN IV PRN (10:44)
[2024-02-28] MEDS: SOD FERRIC GLUC 125 MG in IV NS 0.9% 100 ML IV SCH (15:24)
[2024-02-28 16:00] VITALS: BP 127/56; TEMP 98.7; O2SAT 95
[2024-02-28 20:12] VITALS: BP 154/63; TEMP 99.1; O2SAT 96
[2024-02-28] MEDS: *INSULIN REGULAR(HUMULIN R)HUM 100 UNIT/ML VIAL SQ PRN (21:36)
[2024-02-29 06:43] LABS: BASOPHILS % (AUTO) 0.3 % (0.0-2.0); EOSINOPHILS # (AUTO) 0.4 K/uL (0.0-0.7); EOSINOPHILS % (AUTO) 4.7 % (0.0-6.0); HEMATOCRIT 23 % (33-45); HEMOGLOBIN 8.1 g/dL (11.5-14.8); LYMPHOCYTES # (AUTO) 1.4 K/uL (0.8-4.8); LYMPHOCYTES % (AUTO) 15.7 % (20.0-44.0); MEAN CORPUSCULAR HEMOGLOBIN 33 PG (26.0-33.0); MEAN CORPUSCULAR HGB CONC 36 g/dl (31.0-36.0); MEAN CORPUSCULAR VOLUME 92 fL (82-100); MONOCYTES % (AUTO) 11.5 % (2.0-12.0); NEUTROPHILS # (AUTO) 6.1 K/uL (1.8-8.9); NEUTROPHILS % (AUTO) 67.8 % (43.0-81.0); PLATELET COUNT (AUTO) 139 K/uL (150-450); RED BLOOD CELL COUNT(AUTO) 2.45 MIL/uL (4.0-5.2); RED CELL DISTRIBUTION WIDTH 12.7 % (11.5-15.0); WHITE BLOOD COUNT (AUTO) 8.9 K/uL (4.3-11.0)
[2024-02-29 07:49] LABS: CALCIUM, SERUM 7.2 mg/dL (8.5-10.1); CARBON DIOXIDE 21 mmol/L (21-32); CHLORIDE 104 mmol/L (98-107); CREATININE 1.6 mg/dL (0.6-1.3); GLUCOSE 130 mg/dL (74-106); MAGNESIUM 1.7 mg/dL (1.8-2.4); PHOSPHORUS 2.9 mg/dL (2.5-4.9); POTASSIUM 3.5 mmol/L (3.5-5.1); SODIUM SERUM 137 mmol/L (136-145)
[2024-02-29 08:00] VITALS: BP 125/75; TEMP 98.1; O2SAT 99
[2024-02-29 08:06] LABS: UREA NITROGEN, BLOOD 23 mg/dL (7-18)
[2024-02-29] MEDS: MAGNESIUM OXIDE 400 MG TABLET PO ONE (09:25)
[2024-02-29] MEDS: LIDOCAINE 5% (PATCH) 1 EA PATCH TP SCH (13:18)
[2024-02-29] MEDS: PREGABALIN 25 MG CAPSULE PO SCH (13:18)
[2024-02-29] MEDS: POTASSIUM CHLORIDE 10 MEQ TABLET.SA PO ONE (13:20)
[2024-02-29 17:42] VITALS: BP 155/79
== END 2024-02-29 19:00 | DRG 521 ==
LOC: ER 18:24 → TELE 21:58 → MED 22:27
PROVIDERS: ADMIT Nurse Practitioner Family; ATTEND Nurse Practitioner Family
PROC: 0SRR0JZ Replacement of Right Hip Joint, Femoral Surface with Synthetic Substitute, Open Approach (ICD-10-PCS; principal; 2024-02-27)
DX: S72.011A Unspecified intracapsular fracture of right femur, initial encounter for closed fracture (principal); N17.0 Acute kidney failure with tubular necrosis; N39.0 Urinary tract infection, site not specified; M62.82 Rhabdomyolysis; E87.20 Acidosis, unspecified; E86.0 Dehydration; E11.22 Type 2 diabetes mellitus with diabetic chronic kidney disease; W18.30XA Fall on same level, unspecified, initial encounter; R62.7 Adult failure to thrive; M54.30 Sciatica, unspecified side; I12.9 Hypertensive chronic kidney disease with stage 1 through stage 4 chronic kidney disease, or unspecified chronic kidney disease; N18.9 Chronic kidney disease, unspecified; Z79.4 Long term (current) use of insulin; Z79.82 Long term (current) use of aspirin; Z79.899 Other long term (current) drug therapy; E78.5 Hyperlipidemia, unspecified; E88.09 Other disorders of plasma-protein metabolism, not elsewhere classified; Y92.009 Unspecified place in unspecified non-institutional (private) residence as the place of occurrence of the external cause; Z83.3 Family history of diabetes mellitus; Z80.9 Family history of malignant neoplasm, unspecified; Z83.49 Family history of other endocrine, nutritional and metabolic diseases; Z87.891 Personal history of nicotine dependence; B96.89 Other specified bacterial agents as the cause of diseases classified elsewhere; R53.1 Weakness; M19.90 Unspecified osteoarthritis, unspecified site
CPT/HCPCS: 36415; 70450-TC; 71045-TC; 72125-TC; 72131-TC; 72192-TC; 73502; 76770-TC; 80048-TC; 80076-TC; 81001; 82040-TC; 82140-TC; 82550-TC; 82553; 82728-TC; 82962-TC; 83540-TC; 83605-TC; 83735-TC; 84100-TC; 84443-TC; 84484-TC; 85025-TC; 85027-TC; 85730-TC; 86850-TC; 87040-TC; 87086-TC; 93307-TC; 97110-TC; 97112-TC; 97116-TC; 97164; 97530-TC; A4217; A4223; A6209; C1776; G0378; G0480; J0360; J0690; J0696; J1650; J1815; J1885; J2270; J2704; J2765; J2916; J3010; J3490; J7030; J7060